=== PATIENT | male | born 1970 | race Caucasian/White ===

== ENCOUNTER 2016-07-16 22:39 | Inpatient (IN) | payer OTHER, BC ==
[~2016-07-16] VITALS: Ht 188 cm; Wt 96.7 kg
[2016-07-16 23:16] LABS: HEMATOCRIT 42.4 % (38.0-50.0); MCH 30.4 PG (29.0-34.0); MCV 89.5 FL (86-99); MEAN PLAT.VOLUME 11.2 uM^3 (9.0-12.4); PLATELET COUNT 224 K/uL (156-360); RBC DIS.WIDTH-CV 13.7 % (11.8-14.6); RED BLOOD COUNT 4.74 M/uL (4.00-5.50); WHITE BLOOD COUNT 23.5 K/uL (4.1-10.2)
[2016-07-16 23:19] LABS: CHLORIDE 102 mEq/L (99-109); SODIUM 137 mEq/L (136-147)
[2016-07-16 23:22] LABS: GLUCOSE 168 mg/dL (70-99)
[2016-07-16 23:23] LABS: ANION GAP 10 MEQ/L (2-14); INTER. NORMALIZED RATIO 1.1; PROTHROMBIN TIME 11.2 (9.2-11.2); PTT 28.7 (25-32)
[2016-07-16 23:24] LABS: TOTAL BILIRUBIN 0.7 mg/dL (0.0-1.0)
[2016-07-16 23:25] LABS: ALKALINE PHOSPHATASE 46 IU/L (3-129); GFR ESTIMATE (CALCULATED) > 59 mL/min/
[2016-07-16 23:26] LABS: UREA NITROGEN (BUN) 14 mg/dL (9-23)
[2016-07-17] VITALS (21 sets, daily range): BP systolic 99–129; BP diastolic 51–73
[2016-07-17 00:19] LABS: BASOPHIL COUNT 0.1 K/uL (0-0.1); EOSINOPHIL (%) 7.5 % (0-5); EOSINOPHIL COUNT 1.8 K/uL (0-0.3); HEMATOLOGY COMMENT 1 REV; IMMATURE GRANULOCYTE (%) 0.3 % (0.0-0.7); IMMATURE GRANULOCYTE COUNT 0.8 K/uL; LYMPHOCYTE COUNT 3.5 K/uL (1.0-2.8); MONOCYTE (%) 6.4 % (3-12); MONOCYTE COUNT 1.5 K/uL (0-0.8); NEUTROPHIL (%) 70.8 % (45-76); NEUTROPHIL COUNT 16.6 K/uL (1.8-6.4); USER ID SLU
[2016-07-17] MEDS ORDERED: CRESTOR40 MG PO (00:33)
[2016-07-17] MEDS ORDERED: COREG3.125 M1 PO (00:34)
[2016-07-17] MEDS ORDERED: LEVO-T88 MCG PO (00:34)
[2016-07-17] MEDS ORDERED: LISINOPRIL5 MG PO (00:34)
[2016-07-17] MEDS ORDERED: ASPIRIN325 MG PO (00:35)
[2016-07-17] MEDS ORDERED: OMEPRAZOLE20 MG PO (00:36)
[2016-07-17 01:32] LABS: CREATINE KINASE 88 IU/L (1-294); TOTAL CK 88 IU/L (1-294)
[2016-07-17 01:35] LABS: TROP-I INTERPRETATION NEGATIVE; TROPONIN-I < 0.01 ng/mL (0.0-0.30)
[2016-07-17 01:38] LABS: CK-MB 1.2 ng/mL (0.0-4.9)
[2016-07-17 02:50] LABS: METH RESISTANT S AUREUS PCR NEGATIVE (NEGATIVE)
[2016-07-17 02:55] LABS: PROBE CHECK PASS; SPECIMEN PROCESSING CONTROL PASS
[2016-07-17 06:16] LABS: EOSINOPHIL COUNT 0.4 K/uL (0-0.3); HEMATOCRIT 40.4 % (38.0-50.0); IMMATURE GRANULOCYTE (%) 0.3 % (0.0-0.7); LYMPHOCYTE COUNT 1.9 K/uL (1.0-2.8); MCH 30.1 PG (29.0-34.0); MCHC 33.2 G/DL (30.0-36.0); MCV 90.8 FL (86-99); MEAN PLAT.VOLUME 11.4 uM^3 (9.0-12.4); MONOCYTE (%) 5.4 % (3-12); MONOCYTE COUNT 0.7 K/uL (0-0.8); NEUTROPHIL (%) 77.3 % (45-76); NEUTROPHIL COUNT 10.4 K/uL (1.8-6.4); PLATELET COUNT 182 K/uL (156-360); RBC DIS.WIDTH-CV 13.8 % (11.8-14.6); RBC DIS.WIDTH-SD 45.9 % (39-53); RED BLOOD COUNT 4.45 M/uL (4.00-5.50)
[2016-07-17 06:17] LABS: WHITE BLOOD COUNT 13.5 K/uL (4.1-10.2)
[2016-07-17 06:29] LABS: ANION GAP 8 MEQ/L (2-14); CHLORIDE 103 MEQ/L (99-109); CREATINE KINASE 679 IU/L (1-294); GFR ESTIMATE (CALCULATED) > 59 mL/min/; HDL CHOLESTEROL 23 MG/DL (Desirable>=40); LDL CHOLESTEROL 51 mg/dL (Desirable<100); NON-HDL CHOLESTEROL 80 mg/dL (Desirable<160); POTASSIUM 4.4 MEQ/L (3.7-5.4); SAMPLE HEMOLYSIS CHECK 0; SAMPLE ICTERIC CHECK 0; SAMPLE LIPEMIA CHECK 0; SODIUM 135 MEQ/L (136-147); TOTAL CHOLESTEROL 103 mg/dL (Desirable<200); TOTAL CK 679 IU/L (1-294); TRIGLYCERIDES 143 MG/DL (Normal: <150); TROP-I INTERPRETATION POSITIVE; UREA NITROGEN (BUN) 12 mg/dL (9-23)
[2016-07-17 06:32] LABS: GLUCOSE 113 mg/dL (70-99); TROPONIN-I 12.07 ng/mL (0.0-0.30)
[2016-07-17 06:33] LABS: CK-MB 96.9 ng/mL (0.0-4.9)
[2016-07-17 07:01] LABS: Estimated Average Glucose 120 mg/dL (70-123); HEMOGLOBIN A1c (GLYCOHEMOGLOB) 5.8 % HGB (Below 5.7)
[2016-07-17 12:48] LABS: TROP-I INTERPRETATION POSITIVE
[2016-07-17 12:49] LABS: CK-MB 148.9 ng/mL (0.0-4.9)
[2016-07-17 12:57] LABS: CREATINE KINASE 1091 IU/L (1-294); TOTAL CK 1091 IU/L (1-294); TROPONIN-I 29.51 ng/mL (0.0-0.30)
[2016-07-17 19:05] LABS: TROP-I INTERPRETATION POSITIVE
[2016-07-17 19:15] LABS: TROPONIN-I 33.87 ng/mL (0.0-0.30)
[2016-07-17 19:31] LABS: CK-MB 91.9 ng/mL (0.0-4.9)
[2016-07-17 20:18] LABS: CREATINE KINASE 995 IU/L (1-294); TOTAL CK 995 IU/L (1-294)
[2016-07-18 03:53] VITALS: BP 113/68
[2016-07-18 04:42] LABS: MCH 30.1 PG (29.0-34.0); MCHC 33.5 G/DL (30.0-36.0); MCV 89.9 FL (86-99); MEAN PLAT.VOLUME 11.2 uM^3 (9.0-12.4); PLATELET COUNT 149 K/uL (156-360); RBC DIS.WIDTH-CV 13.9 % (11.8-14.6); RBC DIS.WIDTH-SD 44.2 % (39-53); RED BLOOD COUNT 4.45 M/uL (4.00-5.50); WHITE BLOOD COUNT 9.9 K/uL (4.1-10.2)
[2016-07-18 04:53] LABS: CHLORIDE 107 mEq/L (99-109); POTASSIUM 3.9 mEq/L (3.7-5.4); SODIUM 139 mEq/L (136-147)
[2016-07-18 04:54] LABS: GLUCOSE 101 mg/dL (70-99)
[2016-07-18 04:56] LABS: ANION GAP 6 MEQ/L (2-14)
[2016-07-18 04:58] LABS: GFR ESTIMATE (CALCULATED) > 59 mL/min/
[2016-07-18 04:59] LABS: UREA NITROGEN (BUN) 10 mg/dL (9-23)
[2016-07-18 07:04] VITALS: BP 110/71
[2016-07-18] MEDS ORDERED: NITROSTAT0.4 MG SL ×2 (10:47→11:36)
[2016-07-18] MEDS ORDERED: ASPIR-LOW81 MG PO (10:47)
[2016-07-18] MEDS ORDERED: BRILINTA90 MG PO (10:47)
== END 2016-07-18 12:45 | disposition home or self-care (01) | DRG 247 ==
LOC: EME → EDBD 22:39 → CATH 23:00 → EME 23:00 → 4EAST 07-17 00:22 → 4WEST 07-17 00:22 → 4EAST 07-17 00:22 → 2SOUTH 07-17 00:22 → 4WEST 07-17 00:23 → 4EAST 07-17 13:47
PROVIDERS: Internal Medicine Cardiovascular Disease
DX: I21.09 ST elevation (STEMI) myocardial infarction involving other coronary artery of anterior wall (principal); T82.855A Stenosis of coronary artery stent, initial encounter; I25.10 Atherosclerotic heart disease of native coronary artery without angina pectoris; I10 Essential (primary) hypertension; E78.5 Hyperlipidemia, unspecified; E03.9 Hypothyroidism, unspecified; K21.9 Gastro-esophageal reflux disease without esophagitis; Z87.891 Personal history of nicotine dependence
CPT/HCPCS: 80048; 80053; 80061; 82550; 82550 91; 82553; 83036; 84484; 85025; 85027; 85347; 85610; 85730; 87641; 93005; 99281; 99285; C1725; C1769; C1874; C1887; J0461; J1644; J2250; J3010; J3246; J7030; J7050